=== PATIENT | female | born 1990 | race African-American/Black ===

== ENCOUNTER → 2016-03-06 | Outpatient (CLI) | payer OTHER ==
[~2016-03-06] MED LIST: BUPRTAB51 PO
[2016-03-06 17:29] LABS: BASO % 0.3 %; BASO ABS # 0.03 K/uL (0-0.2); COMPLETE YES; EOS % 0.3 %; HEMATOCRIT 34.9 % (37-47); IG% 0.5 %; LYMPH % 26.4 %; LYMPH ABS # 2.32 K/uL (1.2-3.4); MEAN CELL VOLUME 81.5 fL (80-100); MEAN CORPUSCULAR HEMOGLOBIN 27.6 pg (25-34); MEAN CORPUSCULAR HGB CONC 33.8 g/dl (32-36); MEAN PLATELET VOLUME 9.3 fL (7.4-10.4); NEUT % 63.5 %; PLATELET COUNT 399 K/uL (130-400); RED BLOOD COUNT 4.28 M/uL (4.2-5.4)
[2016-03-06 17:53] LABS: ALT/SGPT 13 U/L (12-78); AST/SGOT 6 U/L (15-37); BLOOD UREA NITROGEN 6 mg/dl (7-18); BUN/CREATININE RATIO 5.9 (10-20); CALCIUM 9.3 mg/dl (8.5-10.1); CARBON DIOXIDE 26 mmol/L (21-32); CHLORIDE 102 mmol/L (98-107); CREATININE 0.98 mg/dl (0.60-1.20); GLUCOSE 93 mg/dl (70-99); POTASSIUM 3.2 mmol/L (3.5-5.1); SODIUM 138 mmol/L (136-145)
[2016-03-06 17:55] LABS: ALB/GLOB RATIO 0.7 (0.9-2); ALKALINE PHOSPHATASE 58 U/L (45-117); C-REACTIVE PROTEIN 6.07 mg/dl (0-0.29)
== END | disposition home or self-care (01) ==
LOC: C.LAB1850 16:57
PROVIDERS: ATTEND Internal Medicine
DX: K50.90 Crohn's disease, unspecified, without complications (principal)